=== PATIENT | female | born 1950 | race Caucasian/White ===

== ENCOUNTER → 2018-09-10 | Outpatient (CLI) | payer OTHER | END | disposition home or self-care (01) | LOC: FIMAGING 07:17 | PROVIDERS: ATTEND Radiology Diagnostic Radiology | DX: I83.813 Varicose veins of bilateral lower extremities with pain (principal); I83.893 Varicose veins of bilateral lower extremities with other complications ==

== ENCOUNTER 2018-11-19 07:25 | Day surgery (SDC) | payer OTHER ==
[2018-11-19] MEDS ORDERED: NS 1,000 ML IV ONE (07:36)
[2018-11-19] MEDS ORDERED: fentaNYL 100 MCG/2 ML INJ IVP PRN (07:36)
[2018-11-19] MEDS ORDERED: MIDAZOLAM 2 MG/2 ML VIAL IVP PRN (07:36)
[2018-11-19] MEDS ORDERED: FLUMAZENIL 0.5 MG/5 ML MDV IVP PRN (07:36)
[2018-11-19] MEDS ORDERED: ceFAZolin 2 GM/DEXTROSE 100 ML IV ONE (07:36)
[2018-11-19] MEDS ORDERED: NALOXONE HCL 0.4 MG/ML INJ IVP PRN (07:36)
[2018-11-19] MEDS ORDERED: SODIUM TETRADECYL SULFATE 3% 2 ML VIAL IV ONE (08:00)
[2018-11-19] MEDS ORDERED: LIDO/EPI 1% **for epidural** 30 ML SDV ONE (08:01)
[2018-11-19] MEDS ORDERED: NA BICARBONATE 50 MEQ/50 ML VIAL ONE (08:04)
[2018-11-19] MEDS ORDERED: CLINDAMYCIN 600 MG/DEXTROSE 50 ML IV ONE (08:51)
--- NOTE | 2018-11-19 08:58 | PDGENHP ---
History & Physical Chief Complaint: LLE VARICOE VEINS History of Present Illness: SEVERE CRAMPS, PRURITIS OF BOTH LE. Pertinent Past, Social, Family History: ATHEROSCLEROSIS, MILD ASTHMA, GERD, OSTEOPENIA, FIBROMYALGIA, DEPRESSION/ANXIETY, CHRONIC H/A, ARTHRITIS. SMOKING HISTORY. Relevant Physical Exam: VEINS MAPPED OUT Cardiorespiratory Assessment: RRR, CTA
--- NOTE | 2018-11-19 08:59 | PDPROPOC ---
Sedation Plan of Care Sedation Plan of Care: vital signs stable, mental status noted, patient educated of risks, benefits, alternatives, patient can tolerate sedation ASA Classification: ASA 3 Planned drugs: fentanyl, midazolam Mallampati Score: Class 3 Mallampati Reference Image: Patient passed 3-3-2 rule?: Yes
[2018-11-19] MEDS ORDERED: IBUPROFEN 200 MG TAB PO ONE (10:21)
[2018-11-19] MEDS ORDERED: HYDROCODONE/APAP 5/325 TAB PO PRN (10:21)
--- NOTE | 2018-11-19 10:23 | PDRADPN ---
Radiology Procedure Note Date of Procedure: 11/19/18 Radiologist: Grace Peacock Anesthesia: IV Sedation Pre-op Diagnosis: LLE VARICOSE VEINS Post-op Diagnosis: SAME Indication: SEVERE CRAMPING AND PRURITIS Procedure: ABLATION, SCLEROTHERAPY, PHLEBECTOMY Finding(s): TENDENCY TO BLEED WITH EVERY LITTLE NEEDLE STICK. MINIMAL PHLEBECTOMY PERFORMED. Inf/Abcess present in the surg proc area at time of surgery?: No
[2018-11-19] MEDS ORDERED: NS 1,000 ML IV SCH (10:30)
[2018-11-19 15:49] VITALS: BP 111/55
== END 2018-11-19 15:44 | disposition home or self-care (01) ==
LOC: FIMAGING 07:25
PROVIDERS: ATTEND Radiology Diagnostic Radiology
DX: I83.813 Varicose veins of bilateral lower extremities with pain (principal); I83.893 Varicose veins of bilateral lower extremities with other complications
CPT/HCPCS: J0690; J2250; J2310; J3010

== ENCOUNTER 2018-12-08 11:53 | Day surgery (SDC) | payer OTHER ==
[2018-12-08] MEDS ORDERED: LIDO/EPI 1% **for epidural** 30 ML SDV ONE ×2 (13:00→13:04)
[2018-12-08] MEDS ORDERED: SODIUM TETRADECYL SULFATE 3% 2 ML VIAL IV ONE (13:00)
[2018-12-08] MEDS ORDERED: NA BICARBONATE 50 MEQ/50 ML VIAL ONE (13:01)
[2018-12-08] MEDS ORDERED: MIDAZOLAM 2 MG/2 ML VIAL ONE (13:15)
[2018-12-08] MEDS ORDERED: fentaNYL 100 MCG/2 ML INJ ONE (13:15)
--- NOTE | 2018-12-08 13:20 | PDGENHP ---
History & Physical Chief Complaint: BILATERAL VARICOSE VEINS History of Present Illness: S/P LT LEG TREATMENT; HEALED WELL. HERE FOR RT LEG TREATMENT. Pertinent Past, Social, Family History: RT RADICAL MASTECTOMY, APPENDECTOMY; NASEEM , CARPAL TUNNEL, ANN. HYPOTHYROIDISM; FIBROMYALGIA. Relevant Physical Exam: RT LEG VARICOSE VEINS MAPPED OUT Cardiorespiratory Assessment: RRR, CTA
--- NOTE | 2018-12-08 13:21 | PDPROPOC ---
Sedation Plan of Care Sedation Plan of Care: vital signs stable, mental status noted, patient educated of risks, benefits, alternatives, patient can tolerate sedation ASA Classification: ASA 2 Planned drugs: fentanyl, midazolam Mallampati Score: Class 2 Mallampati Reference Image: Patient passed 3-3-2 rule?: Yes
[2018-12-08] MEDS ORDERED: CLINDAMYCIN 600 MG/DEXTROSE 50 ML IV ONE (13:23)
[2018-12-08] MEDS ORDERED: NALOXONE HCL 0.4 MG/ML INJ IVP PRN (13:26)
[2018-12-08] MEDS ORDERED: MIDAZOLAM 2 MG/2 ML VIAL IVP PRN (13:26)
[2018-12-08] MEDS ORDERED: FLUMAZENIL 0.5 MG/5 ML MDV IVP PRN (13:26)
[2018-12-08] MEDS ORDERED: fentaNYL 100 MCG/2 ML INJ IVP PRN (13:26)
[2018-12-08] MEDS ORDERED: IBUPROFEN 200 MG TAB PO ONE (14:51)
[2018-12-08] MEDS ORDERED: HYDROCODONE/APAP 5/325 TAB PO PRN (14:51)
--- NOTE | 2018-12-08 14:59 | PDRADPN ---
Radiology Procedure Note Date of Procedure: 12/08/18 Radiologist: Grace Peacock Anesthesia: IV Sedation Pre-op Diagnosis: bilateral varicose veins Post-op Diagnosis: same Indication: treatment for RT leg today Procedure: RT phlebectomy, slerotherapy Finding(s): 10 stab done. Propensity to bleed. Inf/Abcess present in the surg proc area at time of surgery?: No
[2018-12-08] MEDS ORDERED: NS 1,000 ML IV SCH (15:00)
[2018-12-08 16:46] VITALS: BP 114/52
== END 2018-12-08 18:10 | disposition home or self-care (01) ==
LOC: FIMAGING 11:53
PROVIDERS: ATTEND Radiology Diagnostic Radiology
PROC: 3E033TZ Introduction of Destructive Agent into Peripheral Vein, Percutaneous Approach (ICD-10-PCS; principal; 2018-12-08 15:15)
PROC: 06BY3ZZ Excision of Lower Vein, Percutaneous Approach (ICD-10-PCS; principal; 2018-12-08 15:15)
DX: I83.811 Varicose veins of right lower extremity with pain (principal); I83.891 Varicose veins of right lower extremity with other complications; M79.7 Fibromyalgia; E03.9 Hypothyroidism, unspecified; Z85.3 Personal history of malignant neoplasm of breast; Z90.13 Acquired absence of bilateral breasts and nipples
CPT/HCPCS: J2250; J3010

== ENCOUNTER → 2018-12-24 | Outpatient (CLI) | payer OTHER | LOC: FIMAGING 14:52 ==

== ENCOUNTER → 2019-03-09 | Outpatient (CLI) | payer OTHER | LOC: FIMAGING 16:21 ==